=== PATIENT | female | born 1965 | race Caucasian/White ===

== ENCOUNTER 2017-03-11 10:12 | Emergency (ER) | payer BC ==
[~2017-03-11] VITALS: Ht 165.1 cm; Wt 109.0 kg
[~2017-03-11 10:12] MED LIST: CLON.1 PO
[2017-03-11 10:13] VITALS: BP 185/88; PULSE 92; RESP 20; TEMP 98.6; O2SAT 99
[2017-03-11] MEDS ORDERED: ERGO2000 PO (10:33)
[2017-03-11] MEDS ORDERED: CANA1TAB3 PO (10:33)
[2017-03-11] MEDS ORDERED: INSU1INJ13 SQ (10:33)
[2017-03-11] MEDS ORDERED: VICT18IN SQ (10:33)
[2017-03-11] MEDS ORDERED: LEVO50TA4 PO (10:33)
[2017-03-11] MEDS ORDERED: LISI-515 PO (10:33)
[2017-03-11] MEDS ORDERED: GABA300C5 PO (10:33)
[2017-03-11] MEDS ORDERED: HYDROmorphone HCL PF 1 MG/ML VIAL IVS ONE (11:30)
[2017-03-11] MEDS ORDERED: ONDANSETRON HCL 4 MG/2 ML VIAL IVP ONE (11:30)
--- NOTE | 2017-03-11 11:45 | PD ---
HPI Chief Complaint: General Weakness Time Seen by Provider: 10:37 Travel History International Travel<30 days: No Contact w/Intl Traveler<30days: No History of Present Illness HPI His is a 51-year-old female history of hypertension, diabetes mellitus, who presents today with complaints of pain and weakness of her right leg. Patient also complains of numbness to her left leg. Patient states that she's had 2-1/ 2 weeks of progressive low back pain and right buttock pain. She states it's now started to run down the back of her leg. She states that she's been seen by her primary care doctor who placed her on muscle relaxers. She was also seen in urgent care and was given a steroid injection. She states that despite this, she still having discomfort. PFSH Past Medical History Hx Anticoagulant Therapy: No Anemia: Yes Cardiovascular Problems: No Chemotherapy: No Cerebrovascular Accident: No Diabetes: Yes Patient Takes Glucophage: No Hypertension: Yes Respiratory: No Thyroid Disease: Yes Influenza Vaccination: No ?: Not Para: 2 : 1 Past Surgical History Surgical History: No Previous Surgery Hysterectomy: No Social History Alcohol Use: No Tobacco Use: No Substance Use: No Allergies-Medications (Allergen,Severity, Reaction): Coded Allergies: No Known Allergies (Unverified , 03/11/17) Reported Meds & Prescriptions Reported Meds & Active Scripts Active Reported Victoza Inj (Liraglutide Inj) 18 Mg/3 Ml Pen 0.6 Mg SQ HS Tresiba Flextouch Pen Inj (Insulin Degludec Inj) 600 unit/3 ML Pen 32 Units SQ DAILY Invokamet (Canagliflozin-Metformin) 150-500 Mg Tab 2 Tab PO DAILY Take with meals. Avoid ethanol. Vitamin D2 (Ergocalciferol) 2,000 Unit Tab 5,000 Units PO DAILY Gabapentin 300 Mg Cap 300 Mg PO QID Lisinopril 20 Mg Tab 20 Mg PO DAILY Levothyroxine (Levothyroxine Sodium) 50 Mcg Tab 50 Mcg PO DAILY Review of Systems Except as stated in HPI: all other systems reviewed are Neg General / Constitutional: No: Fever, Chills HENT: No: Headaches, Neck Pain Cardiovascular: No: Chest Pain or Discomfort, Palpitations Respiratory: No: Cough, Shortness of Breath Gastrointestinal: No: Nausea, Vomiting, Abdominal Pain Genitourinary: No: Frequency, Dysuria, Incontinence Musculoskeletal: Positive: Weakness (secondary to pain), Pain (low back and right buttock/right leg) Neurologic: Positive: Sensory Disturbance (numbness and tingling. The patient does have a history of neuropathy.), No: Weakness, Incontinence Physical Exam Narrative GENERAL: Well-nourished, well-developed patient. SKIN: Focused skin assessment warm/dry. HEAD: Normocephalic/atraumatic. EYES: No scleral icterus. No injection or drainage. NECK: Supple, trachea midline. CARDIOVASCULAR: Regular rate and rhythm without murmurs, gallops, or rubs. RESPIRATORY: Breath sounds equal bilaterally. No accessory muscle use. GASTROINTESTINAL: Abdomen soft, non-tender, nondistended. MUSCULOSKELETAL: No cyanosis, or edema. BACK: Subjective lower lumbar spine pain. Worse on the right. NEUROLOGICAL: Awake and alert. Cranial nerves II through XII intact. Motor grossly within normal limits. Five out of 5 muscle strength in all muscle groups. Normal speech. Data Data Last Documented VS Vital Signs Date Time Temp Pulse Resp B/P Pulse Ox O2 Delivery O2 Flow Rate FiO2 03/11/17 13:05 17 03/11/17 10:13 98.6 92 185/88 99 Room Air Orders Mri L Spine W/O Contrast (03/11/17 10:58) Ondansetron Inj (Zofran Inj) (03/11/17 11:30) Hydromorphone Pf Inj (Dilaudid Pf Inj) (03/11/17 11:30) MDM Medical Decision Making Medical Screen Exam Complete: Yes Emergency Medical Condition: Yes Differential Diagnosis Sciatica versus cauda equina syndrome versus neuropathy Narrative Course 51-year-old female history diabetes mellitus, hypertension, presented today with complaints of back pain with radiation down her right leg. Patient has no focal weakness on exam. She has subjective numbness and tingling. 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 An MRI of the lumbar spine to rule out cauda equina syndrome. There is mild canal stenosis however no evidence of cauda equina syndrome. She does have narrowing of the neural foramina bilaterally at L4-L5. Discussed with patient this is likely the cause of her pain. We discussed this is sciatica. We will treat her with muscle relaxer and pain medication. I informed her she'll need to follow up with a paintings restorer for possible injections. She is on her feet all day at work. She'll be given a note to go back to work on March 20. She states she is taking FMLA. Diagnosis Primary Impression: Lumbago of lumbosacaral region with sciatica Additional Impressions: Diabetes mellitus Hypertension Additional Instructions: Avoid heavy lifting. Follow up with pain management. Try to get her blood sugar in better control. Return if loss of bowel or bladder function. Scripts Hydrocodone-Acetaminophen (Lortab)5-325 Mg Tab1 Tab PO Q6H PRN (PAIN) #20 TAB Ref 0 Prov:Pedro Novak MD 03/11/17 Cyclobenzaprine (Flexeril)10 Mg Tab10 Mg PO TID #15 TAB Ref 0 Prov:Pedro Novak MD 03/11/17 Disposition: 01 DISCHARGE HOME Condition: Stable Pedro Novak MD Mar 11, 2017 11:45
--- NOTE | 2017-03-11 12:44 | RADRPT ---
EXAM DATE/TIME: 03/11/2017 12:16 [facility] COMPARISON: No previous studies available for comparison. INDICATIONS : Pain. Right lower extremity radiculopathy. MEDICAL HISTORY : Diabetes mellitus type 2. Hypertension. Anemia. SURGICAL HISTORY : None. ENCOUNTER: Initial ACUITY: 1 day PAIN SCORE: 4/10 LOCATION: [facility] TECHNIQUE: Multiplanar multisequence MRI of the lumbar spine was performed without contrast. FINDINGS: The most caudal appearing lumbar vertebra is numbered as L5. VERTEBRAE: Homogeneous signal. Normal alignment. DISCS: There is mild desiccation of the disc at the L4-5 level with small anterior extradural defect on the sagittal images. Disc space heights are preserved. CONUS: Normal level and configuration. T12-L1: The thecal sac has a normal diameter. No evidence of disc bulge or protrusion. The neural foramina are patent bilaterally. L1-L2: The thecal sac has a normal diameter. No evidence of disc bulge or protrusion. The neural foramina are patent bilaterally. L2-L3: The thecal sac has a normal diameter. No evidence of disc bulge or protrusion. The neural foramina are patent bilaterally. L3-L4: The thecal sac has a normal diameter. No evidence of disc bulge or protrusion. The neural foramina are patent bilaterally. L4-L5: There is mild annular disc bulge with mild flattening of the anterior thecal sac and no focal protrus ion. There is mild narrowing of the neural foramina. Degenerative changes are noted involving the fac et joints with hypertrophy of the ligamentum flavum. There is mild central canal stenosis. L5-S1: The thecal sac has a normal diameter. No evidence of disc bulge or protrusion. The neural foramina are patent bilaterally. CONCLUSION: 1. Mild degenerative disc change at L4-5 with mild disc bulge and mild central canal stenosis. 2. Mild narrowing of the neural foramina bilaterally at the L4-5 level. Kahlil Felipe MD on March 11, 2017 at 12:39 Board Certified Radiologist. This report was verified electronically.
[2017-03-11] MEDS ORDERED: HYDR-3533 PO (13:05)
[2017-03-11] MEDS ORDERED: CYCL1TAB29 PO (13:05)
[2017-03-11 13:42] VITALS: BP 136/64; PULSE 70; RESP 16; O2SAT 97
== END 2017-03-11 14:00 | disposition home or self-care (01) ==
LOC: NEPC 10:12
DX: M54.40 Lumbago with sciatica, unspecified side (principal); E11.9 Type 2 diabetes mellitus without complications; I10 Essential (primary) hypertension; R53.1 Weakness; M62.81 Muscle weakness (generalized); R20.0 Anesthesia of skin; D64.9 Anemia, unspecified; E07.9 Disorder of thyroid, unspecified; Z79.899 Other long term (current) drug therapy
CPT/HCPCS: 72148; 96374; 96375; 99285; J1170; J2405

== ENCOUNTER 2017-07-11 08:20 | Observation (INO) | payer BC ==
[2017-07-11] VITALS (11 sets, daily range): BP systolic 122–194; BP diastolic 56–82; PULSE 92–101; RESP 16–24; TEMP 97.8–99.1; O2SAT 97–100
[~2017-07-11 08:20] MED LIST changes: +CANA1TAB3 PO; -CLON.1 PO; +CYCL10TA PO; +ERGO2000 PO; +GABA300C5 PO; +HYDR-3533 PO; +INSU1INJ13 SQ; +LEVO50TA4 PO; +LISI-515 PO; +VICT18IN SQ
[2017-07-11] MEDS ORDERED: ERGO2000 PO (08:49)
[2017-07-11] MEDS ORDERED: GABA400C5 PO ×2 (08:49→12:21)
[2017-07-11] MEDS ORDERED: FERR325T18 PO (08:49)
[2017-07-11] MEDS ORDERED: INSU1INJ14 SQ (08:49)
--- NOTE | 2017-07-11 09:08 | PD ---
HPI Chief Complaint: Dizziness Time Seen by Provider: 09:08 Travel History International Travel<30 days: No Contact w/Intl Traveler<30days: No Traveled to known affect area: No History of Present Illness HPI 51-year-old female came to the emergency room with history of feeling dizzy and lightheaded. The symptoms have been progressively worsening for 1 week. Patient says that she has been diagnosed with anemia in the past which was last year and required blood transfusion and the symptoms feel similar to that. She does not have an active source of bleeding. No history of syncopal episode. No history of chest pain or headache. Last year she required blood transfusion and iron infusion. Vital signs are otherwise stable. Patient is also complaining of pain of her chronic sciatica which starts on the lower back and radiates down her left hip. PFSH Past Medical History Narrative Medical List of her past medical, surgical, social and family history is reviewed from the nursing note. Hx Anticoagulant Therapy: No Anemia: Yes Cardiovascular Problems: No Chemotherapy: No Cerebrovascular Accident: No Diabetes: Yes Patient Takes Glucophage: No Diminished Hearing: No Hypertension: Yes Respiratory: No Thyroid Disease: Yes ?: Not Para: 2 : 1 Past Surgical History Surgical History: No Previous Surgery Hysterectomy: No Social History Alcohol Use: No Tobacco Use: No Substance Use: No Allergies-Medications (Allergen,Severity, Reaction): Coded Allergies: No Known Allergies (Unverified Allergy, Unknown, 07/11/17) Comments no known drug allergies. Reported Meds & Prescriptions Reported Meds & Active Scripts Active Walker with Front Wheels (Device) 1 Mis Mis Ea .ROUTE DIRECTED Gabapentin 400 Mg Cap 400 Mg PO Q6HR Reported Tresiba Flextouch Pen Inj (Insulin Degludec Inj) 300 unit/3 ML Pen 38 Units SQ DAILY Vitamin D2 (Ergocalciferol) 2,000 Unit Tab 5,000 Units PO WEEKLY Victoza Inj (Liraglutide Inj) 18 Mg/3 Ml Pen 0.6 Mg SQ HS Invokamet (Canagliflozin-Metformin) 150-500 Mg Tab 2 Tab PO DAILY Take with meals. Avoid ethanol. Lisinopril 20 Mg Tab 20 Mg PO DAILY Levothyroxine (Levothyroxine Sodium) 50 Mcg Tab 50 Mcg PO DAILY Narrative Medication List of her home medications reviewed from the nursing note. Review of Systems Except as stated in HPI: all other systems reviewed are Neg Musculoskeletal: Positive: Pain Neurologic: Positive: Dizziness Physical Exam Narrative GENERAL: Awake, alert, obese, mild distress SKIN: Focused skin assessment warm/dry. Pale HEAD: Atraumatic. Normocephalic. EYES: Pupils equal and round. No scleral icterus. No injection or drainage. Pallor ENT: No nasal bleeding or discharge. Mucous membranes pink and moist. NECK: Trachea midline. No JVD. CARDIOVASCULAR: Regular rate and rhythm. No murmur appreciated. RESPIRATORY: No accessory muscle use. Clear to auscultation. Breath sounds equal bilaterally. GASTROINTESTINAL: Abdomen soft, non-tender, nondistended. Hepatic and splenic margins not palpable. MUSCULOSKELETAL: No obvious deformities. No clubbing. No cyanosis. No edema. NEUROLOGICAL: Awake and alert. No obvious cranial nerve deficits. Motor grossly within normal limits. Normal speech. PSYCHIATRIC: Appropriate mood and affect; insight and judgment normal. Data Data Last Documented VS Vital Signs Date Time Temp Pulse Resp B/P (MAP) Pulse Ox O2 Delivery O2 Flow Rate FiO2 07/11/17 09:24 102 163/71 (101) 101 160/70 (100) 159/69 (99) 07/11/17 09:14 16 100 Room Air 07/11/17 08:22 98.2 Orders Orders Basic Metabolic Panel (Bmp) (07/11/17 09:09) Complete Blood Count With Diff (07/11/17 09:09) Type And Screen (07/11/17 09:09) Ecg Monitoring (07/11/17 09:09) Iv Access Insert/Monitor (07/11/17 09:09) Oximetry (07/11/17 09:09) Sodium Chloride 0.9% Flush (Ns Flush) (07/11/17 09:15) Ct Brain W/O Iv Contrast(Rout) (07/11/17 ) Meclizine (Antivert) (07/11/17 09:15) Red Blood Cells (Rbc) (07/11/17 10:05) Blood Product Administration (07/11/17 10:05) Sodium Chlor 0.9% 250 Ml Inj (Ns 250 Ml (07/11/17 10:15) Vascular Access Team Consult/P PRN (07/11/17 10:15) Vascular Poc Ultrasound (07/11/17 ) Acetamin-Hydrocod 325-5 Mg (Mize 5-325 (07/11/17 10:30) Admit Order (Ed Use Only) (07/11/17 10:46) Labs Laboratory Tests Test 07/11/17 09:40 White Blood Count 10.4 TH/MM3 Red Blood Count 2.90 MIL/MM3 Hemoglobin 6.3 GM/DL Hematocrit 19.9 % Mean Corpuscular Volume 68.8 FL Mean Corpuscular Hemoglobin 21.7 PG Mean Corpuscular Hemoglobin Concent 31.5 % Red Cell Distribution Width 18.6 % Platelet Count 371 TH/MM3 Mean Platelet Volume 9.7 FL Neutrophils (%) (Auto) 77.0 % Lymphocytes (%) (Auto) 14.8 % Monocytes (%) (Auto) 5.5 % Eosinophils (%) (Auto) 2.1 % Basophils (%) (Auto) 0.6 % Neutrophils # (Auto) 8.0 TH/MM3 Lymphocytes # (Auto) 1.5 TH/MM3 Monocytes # (Auto) 0.6 TH/MM3 Eosinophils # (Auto) 0.2 TH/MM3 Basophils # (Auto) 0.1 TH/MM3 CBC Comment DIFF FINAL Differential Comment Blood Smear Pathologist Review Blood Urea Nitrogen 33 MG/DL Creatinine 1.17 MG/DL Random Glucose 246 MG/DL Calcium Level 9.3 MG/DL Sodium Level 135 MEQ/L Potassium Level 4.3 MEQ/L Chloride Level 104 MEQ/L Carbon Dioxide Level 23.9 MEQ/L Anion Gap 7 MEQ/L Estimat Glomerular Filtration Rate 49 ML/MIN Iron Level 16 MCG/DL Total Iron Binding Capacity 528 MCG/DL Percent Iron Saturation 3.0 % Vitamin B12 Level 555 PG/ML Folate GREATER THAN 20.0 NG/ML Thyroid Stimulating Hormone 3rd Gen 3.980 uIU/ML MDM Medical Decision Making Medical Screen Exam Complete: Yes Emergency Medical Condition: Yes Medical Record Reviewed: Yes Differential Diagnosis Anemia, cardiac arrhythmia, intracranial bleed Narrative Course 10:49 AM blood test results are back. Patient has critically low hemoglobin and hematocrit. Blood sugar is elevated. I have ordered for 2 units of blood transfusion. I discussed the case with the patient and her and recommended admission at least for observation. I discussed the case with the residents who have accepted the admission. Critical Care Narrative Aggregate critical care time was 30 minutes. Time to perform other separately billable procedures was not included in the critical care time. My time did not include minutes spent treating any other patients simultaneously or on activities that did not directly contribute to the patient's treatment. The services I provided to this patient were to treat and/or prevent clinically significant deterioration that could result in: Symptomatic anemia, 2 units of blood transfused I provided critical care services requiring my management, as noted below: Chart data review, documentation time, medication orders and management, vital sign assessments/reviewing monitor data, ordering and reviewing lab tests, ordering and interpreting/reviewing x-rays and diagnostic studies, care of the patient and discussion of the patient with the admitting physicians. Procedures EKG Prior to Arrival: No HemaPrompt Point of Care Internal Pos. & Neg. Controls: Passed Fecal Specimen Occult Blood: Negative Diagnosis Primary Impression: Symptomatic anemia Additional Impressions: Hyperglycemia Chronic sciatica Qualified Codes: M54.32 - Sciatica, left side Admitting Information Admitting Physician Requests: Observation Scripts Ferrous Sulfate (Ferrous Sulfate) 325 Mg (65 Mg Iron) Tablet 325 MG PO TIDPC for Nutritional Supplement, #90 TAB 1 Refill Prov: Denny Solomon MD R2 07/12/17 Walker with Front Wheels (Walker with Front Wheels) 1 Mis Mis EA .ROUTE DIRECTED, #1 0 Refills Prov: Susy Rangel MD R1 07/11/17 Gabapentin (Gabapentin) 400 Mg Cap 400 MG PO Q6HR, #30 CAP 0 Refills Prov: Susy Rangel MD R1 07/11/17 Parish Parrish MD Jul 11, 2017 09:08
[2017-07-11] MEDS ORDERED: MECLIZINE HCL 25 MG TAB PO ONE (09:15)
[2017-07-11] MEDS ORDERED: SODIUM CHLORIDE 0.9% FLUSH 10 ML FLUSH IVF PRN (09:15)
[2017-07-11 09:52] LABS: BASOPHIL # 0.1 TH/MM3 (0-0.2); BASOPHIL % 0.6 % (0.0-2.0); EOSINOPHIL # 0.2 TH/MM3 (0-0.4); EOSINOPHIL % 2.1 % (0.0-4.0); LYMPH % 14.8 % (9.0-44.0); LYMPHOCYTE # 1.5 TH/MM3 (1.0-4.8); MEAN CELL VOLUME 68.8 FL (80.0-100.0); MEAN CORPUSCULAR HEMOGLOBIN 21.7 PG (27.0-34.0); MEAN CORPUSCULAR HGB CONC 31.5 % (32.0-36.0); MONO % 5.5 % (0.0-8.0); PLATELET COUNT 371 TH/MM3 (150-450); RED CELL DISTRIBUTION WIDTH 18.6 % (11.6-17.2); WHITE BLOOD COUNT 10.4 TH/MM3 (4.0-11.0)
[2017-07-11 09:55] LABS: HEMO FLAGS DIFF FINAL
[2017-07-11 10:02] LABS: HEMATOCRIT 19.9 % (35.0-46.0)
[2017-07-11] MEDS ORDERED: SODIUM CHLOR 0.9% 250 ML INJ 250 ML IV ONE (10:15)
--- NOTE | 2017-07-11 10:15 | RADRPT ---
EXAM DATE/TIME: 07/11/2017 09:46 [facility] COMPARISON: No previous studies available for comparison. INDICATIONS : Dizziness on and off for 1 week. RADIATION DOSE: 37.89 CTDIvol (mGy) MEDICAL HISTORY : Diabetes mellitus type 2. Hypertension. SURGICAL HISTORY : None. ENCOUNTER: Initial ACUITY: 1 week PAIN SCALE: 0/10 LOCATION: cranial TECHNIQUE: Multiple contiguous axial images were obtained of the head. Using automated exposure control and adj ustment of the mA and/or kV according to patient size, radiation dose was kept as low as reasonably a chievable to obtain optimal diagnostic quality images. DICOM format image data is available electro nically for review and comparison. FINDINGS: CEREBRUM: The ventricles are normal for age. No evidence of midline shift, mass lesion, hemorrhage or acute in farction. No extra-axial fluid collections are seen. POSTERIOR FOSSA: The cerebellum and brainstem are intact. The 4th ventricle is midline. The cerebellopontine angle i s unremarkable. EXTRACRANIAL: The visualized portion of the orbits is intact. SKULL: The calvaria is intact. No evidence of skull fracture. CONCLUSION: Negative exam. Ketan Flaherty MD on July 11, 2017 at 10:12 Board Certified Radiologist. This report was verified electronically.
[2017-07-11 10:27] LABS: BICARBONATE 23.9 MEQ/L (21.0-32.0); POTASSIUM 4.3 MEQ/L (3.5-5.1)
[2017-07-11] MEDS ORDERED: ACETAMINOPHEN/HYDROcodone 325 MG/5 MG TAB PO ONE (10:30)
--- NOTE | 2017-07-11 10:32 | HHI.HP ---
[facility] Service Family Medicine Primary Care Physician Ray Tobar M.D. Admission Diagnosis Diagnoses: International Travel<30 Days: No Contact w/Intl Traveler<30days: No Known Affected Area: No History of Present Illness Patient is a 51 year old female with a past medical history of anemia, hypothyroidism, DM and hypertension who presents to the [place] ED complaining of weakness and dizziness x 1 week. Patient has experienced dizziness on and off. When she got up this morning, she felt the room spinning. She denies any near-syncopal or syncopal events. Patient also states that she has noticed her complexion to be pale. She reports "hearing the pounding of [her] heartbeat in [ her] ears." Blood sugars have not been well controlled this week; highest blood sugar recorded in 500s. Patient has regular monthly periods. She describes first 2 days as heavy; patient reports 4-5 soaked tampons/pads per day with occasional samuel-sized blood clots. Patient denies weakness and dizziness with menstrual bleeding. Of note, patient had same set of symptoms in October 2015 when she was admitted for hemoglobin of 6 at [facility]. She received blood transfusions and iron infusion. Workup at that time included blood work and bone marrow biopsy. Following hospitalization, patient had normal EGD/colonoscopy. Patient has not followed up with hematology. PCP follows H&H. Hemoglobin in October 2016 was 11. Patient takes iron supplementation daily. (Susy Rangel MD R1) Review of Systems Constitutional: COMPLAINS OF: Fatigue, Dizziness, DENIES: Diaphoretic episodes , Fever, Chills, Change in appetite Endocrine: DENIES: Abnorml menstrual pattern Eyes: COMPLAINS OF: Blurred vision, DENIES: Diplopia, Vision loss, Double Vision Ears, nose, mouth, throat: COMPLAINS OF: Tinnitus (Pounding ), DENIES: Nasal discharge, Throat pain, Hoarseness, Ear Pain, Running Nose Respiratory: COMPLAINS OF: Cough, Shortness of breath (When walking), DENIES: Wheezing, Sputum production Cardiovascular: COMPLAINS OF: Lower Extremity Edema (Decreased movement due to pain in hip), DENIES: Chest pain, Palpitations Gastrointestinal: DENIES: Abdominal pain, Black stools, Bloody stools, Constipation, Diarrhea, Nausea, Vomiting Genitourinary: DENIES: Abnormal vaginal bleeding, Dysmenorrhea, Urinary frequency, Urgency, Hematuria Musculoskeletal: COMPLAINS OF: Back pain (Sciatica), DENIES: Joint pain, Muscle aches, Neck pain Integumentary: DENIES: Abnormal pigmentation, Rash, Nail changes Hematologic/lymphatic: DENIES: Bruising Neurologic: COMPLAINS OF: Headache (This week) Psychiatric: COMPLAINS OF: Anxiety, Depression (Susy Rangel MD R1) Past Family Social History Past Medical History Hypothyroidism Diabetes Peripheral Neuropathy Anemia Hypertension Past Surgical History None Reported Medications Active Gabapentin 400 Mg Cap 400 Mg PO Q6HR Reported Tresiba Flextouch Pen Inj (Insulin Degludec Inj) 300 unit/3 ML Pen 38 Units SQ DAILY Ferrous Sulfate 325 Mg (65 Mg Iron) Tablet 150 Mg PO BID Vitamin D2 (Ergocalciferol) 2,000 Unit Tab 5,000 Units PO WEEKLY Victoza Inj (Liraglutide Inj) 18 Mg/3 Ml Pen 0.6 Mg SQ HS Invokamet (Canagliflozin-Metformin) 150-500 Mg Tab 2 Tab PO DAILY Take with meals. Avoid ethanol. Lisinopril 20 Mg Tab 20 Mg PO DAILY Levothyroxine (Levothyroxine Sodium) 50 Mcg Tab 50 Mcg PO DAILY (Susy Rangel MD R1) Allergies: Coded Allergies: No Known Allergies (Unverified Allergy, Unknown, 07/11/17) Active Ordered Medications Current Medications Medications (Trade) Dose Ordered Sig/Manuel Route Start Time Stop Time Status Last Admin Sodium Chloride 250 ml @ 15 mls/hr ONCE ONCE IV 07/11/17 10:15 07/12/17 02:54 07/11/17 13:29 (Ferrous Sulfate) 325 mg DAILY PO 07/11/17 14:00 (Synthroid) 50 mcg DAILY@0600 PO 07/11/17 12:15 07/11/17 13:29 (Prinivil) 20 mg DAILY PO 07/11/17 12:15 07/11/17 13:29 (Drisdol) 50,000 units Q7D PO 07/17/17 09:00 (NS Flush) 2 ml UNSCH PRN IV FLUSH 07/11/17 11:15 (NS Flush) 2 ml BID IV FLUSH 07/11/17 21:00 (Zofran Inj) 4 mg Q6H PRN IVP 07/11/17 11:15 (Tylenol) 650 mg Q6H PRN PO 07/11/17 11:15 (Lucinda-Colace) 1 tab BID PO 07/11/17 21:00 (Milk Of Magnesia Liq) 30 ml Q12H PRN PO 07/11/17 11:15 (Senokot) 17.2 mg Q12H PRN PO 07/11/17 11:15 (Dulcolax Supp) 10 mg DAILY PRN RECTAL 07/11/17 11:15 (Lactulose Liq) 30 ml DAILY PRN PO 07/11/17 11:15 (D50w (Vial) Inj) 50 ml UNSCH PRN IV PUSH 07/11/17 11:30 (Glucagon Inj) 1 mg UNSCH PRN OTHER 07/11/17 11:30 (NovoLOG SUPPLEMENTAL SCALE) 1 ACHS SLIDING SCALE SQ 07/11/17 12:00 07/11/17 13:28 (Catapres) 0.1 mg Q6H PRN PO 07/11/17 11:30 (Benadryl) 25 mg Q4H PRN PO 07/11/17 11:30 (Neurontin) 400 mg Q6HR PO 07/11/17 18:00 Family History Mother - COPD, DM, anemia, 11 blood transfusion in 15 year time-span Brother - Prostate cancer Social History Lives with , for 21 years Alcohol: None Tobacco: None Drugs: None (Susy Rangel MD R1) Physical Exam Vital Signs Vital Signs Date Time Temp Pulse Resp B/P (MAP) Pulse Ox O2 Delivery O2 Flow Rate FiO2 07/11/17 09:24 102 163/71 (101) 101 160/70 (100) 159/69 (99) 07/11/17 09:14 101 16 194/82 (119) 100 Room Air 07/11/17 08:22 98.2 93 16 134/63 (86) 100 Physical Exam GENERAL: This is a well-nourished, well-developed patient, in no apparent distress. SKIN: No rashes, ecchymoses or lesions. Warm and dry. HEAD: Atraumatic/Normocephalic. No temporal or scalp tenderness. EYES: Pupils equal round and reactive. Extraocular motions intact. No scleral icterus. No injection or drainage. ENT: Nose without bleeding, purulent drainage or septal hematoma. Throat without erythema, tonsillar hypertrophy or exudate. Uvula midline. Airway patent. NECK: Trachea midline. No JVD or lymphadenopathy. Supple, nontender, no meningeal signs. CARDIOVASCULAR: Regular rate and rhythm with flow murmurs, without gallops, or rubs. RESPIRATORY: Clear to auscultation. Breath sounds equal bilaterally. No wheezes , rales, or rhonchi. GASTROINTESTINAL: Abdomen soft, non-tender, nondistended. No hepato-splenomegaly , or palpable masses. No guarding. MUSCULOSKELETAL: Bilateral lower extremities with edema but without clubbing, cyanosis. No joint tenderness, effusion. No calf tenderness. NEUROLOGICAL: Awake and alert. Cranial nerves II through XII intact. Motor and sensory grossly within normal limits. Normal speech. Laboratory Laboratory Tests Test 07/11/17 09:40 White Blood Count 10.4 Red Blood Count 2.90 Hemoglobin 6.3 Hematocrit 19.9 Mean Corpuscular Volume 68.8 Mean Corpuscular Hemoglobin 21.7 Mean Corpuscular Hemoglobin Concent 31.5 Red Cell Distribution Width 18.6 Platelet Count 371 Mean Platelet Volume 9.7 Neutrophils (%) (Auto) 77.0 Lymphocytes (%) (Auto) 14.8 Monocytes (%) (Auto) 5.5 Eosinophils (%) (Auto) 2.1 Basophils (%) (Auto) 0.6 Neutrophils # (Auto) 8.0 Lymphocytes # (Auto) 1.5 Monocytes # (Auto) 0.6 Eosinophils # (Auto) 0.2 Basophils # (Auto) 0.1 CBC Comment DIFF FINAL Differential Comment Blood Urea Nitrogen 33 Creatinine 1.17 Random Glucose 246 Calcium Level 9.3 Sodium Level 135 Potassium Level 4.3 Chloride Level 104 Carbon Dioxide Level 23.9 Anion Gap 7 Estimat Glomerular Filtration Rate 49 (Susy Rangel MD R1) Result Diagram: 07/11/17 0940 07/11/17 0940 Imaging Last Impressions Head CT 07/11/17 0000 Signed Impressions: Service Date/Time: Tuesday, July 11, 2017 09:46 - CONCLUSION: Negative exam. Ketan Flaherty MD (Susy Rangel MD R1) Caprini VTE Risk Assessment Caprini VTE Risk Assessment: Mod/High Risk (score >= 2) VTE Pharm Contraindication: Hgb 6.3 Caprini Risk Assessment Model Point Value = 1 Point Value = 2 Point Value = 3 Point Value = 5 Age 41-60 Minor surgery BMI > 25 kg/m2 Swollen legs Varicose veins or History of unexplained or recurrent spontaneous Oral contraceptives or hormone replacement Sepsis (< 1 month) Serious lung disease, including pneumonia (< 1 month) Abnormal pulmonary function Acute myocardial infarction Congestive heart failure (< 1 month) History of inflammatory bowel disease Medical patient at bed rest Age 61-74 Arthroscopic surgery Major open surgery (> 45 min) Laparoscopic surgery (> 45 min) Malignancy Confined to bed (> 72 hours) Immobilizing plaster cast Central venous access Age >= 75 History of VTE Family history of VTE Factor V Leiden Prothrombin [id number] Lupus anticoagulant Anticardiolipin antibodies Elevated serum homocysteine Heparin-induced thrombocytopenia Other congenital or acquired thrombophilia Stroke (< 1 month) Elective arthroplasty Hip, pelvis, or leg fracture Acute spinal cord injury (< 1 month) Prophylaxis Regimen Total Risk Factor Score Risk Level Prophylaxis Regimen 0-1 Low Early ambulation 2 Moderate Order ONE of the following: *Sequential Compression Device (SCD) *Heparin 5000 units SQ BID 3-4 Higher Order ONE of the following medications: *Heparin 5000 units SQ TID *Enoxaparin/Lovenox 40 mg SQ daily (WT < 150 kg, CrCl > 30 mL/min) *Enoxaparin/Lovenox 30 mg SQ daily (WT < 150 kg, CrCl > 10-29 mL/min) *Enoxaparin/Lovenox 30 mg SQ BID (WT < 150 kg, CrCl > 30 mL/min) AND/OR *Sequential Compression Device (SCD) 5 or more Highest Order ONE of the following medications: *Heparin 5000 units SQ TID (Preferred with Epidurals) *Enoxaparin/Lovenox 40 mg SQ daily (WT < 150 kg, CrCl > 30 mL/min) *Enoxaparin/Lovenox 30 mg SQ daily (WT < 150 kg, CrCl > 10-29 mL/min) *Enoxaparin/Lovenox 30 mg SQ BID (WT < 150 kg, CrCl > 30 mL/min) AND *Sequential Compression Device (SCD) (Susy Rangel MD R1) Assessment and Plan Assessment and Plan Patient is a 51 year old female with a past medical history of anemia, hypothyroidism, DM and hypertension who presents to the [place] ED complaining of weakness and dizziness x 1 week. Found to have hemoglobin of 6.3. Admitted for blood transfusion. Code Status Full code. Discussed Condition With Drs. Stoll and Juanito. (Susy Rangel MD R1) Attending Attestation THIS CASE WAS DISCUSSED WITH THE RESIDENT PHYSICIANS. I HAVE REVIEWED THE RECORD AND AGREE WITH THE ABOVE NOTE AND PLAN OF CARE WAS DISCUSSED. I HAVE AUTHORIZED THE ORDER FOR ADMISSION TO AN IN-PATIENT STATUS. (Kenyon Stoll MD) Problem List: (1) Anemia ICD Codes: D64.9 - Anemia, unspecified Status: Acute Plan: Patient has experienced weakness and dizziness on and off for the past week. When she got up this morning, she felt the room spinning. She denies any near-syncopal or syncopal events. Patient also states that she has noticed her complexion to be pale. Patient has had similar set of symptoms in October 2015; at that time, she was found to have hemoglobin of 6. Extensive workup negative. H&H followed by PCP. Patient taken iron supplementation at home. Differential diagnosis: * Iron deficiency anemia versus anemia of chronic disease versus malignancy Labs on admission: * Hgb 6.3 * Hct 19.9 * MCV 68.8 * MCH 21.7 * MCHC 31.5 * RDW 18.6 Labs: * Blood type A+ * Iron studies pending. * Vitamin B-12 level pending. * Folate level pending. * Post transfusion H&H pending. Imaging/studies: * Head CT: Negative exam. * EKG: Sinus rhythm. * Vascular ultrasound: pending. Infusions/medications: * Leuk-reduced RBC x2 units ordered. * Ferrous sulfate 325 mg daily PO. * Ergocalciferol 5,000 units q7D PO. (2) Diabetes mellitus ICD Codes: E11.9 - Type 2 diabetes mellitus without complications Status: Chronic Plan: Per patient, blood glucose has not been well controlled over the last week. Labs on admission: * Random glucose: 246. Orders: * Blood glucose checks to be done at 800, 1200, 1700, 2100. Medications: * Held home diabetic medications. * NovoLog supplemental sliding scale. (3) Chronic sciatica ICD Codes: M54.30 - Sciatica, unspecified side Status: Chronic Plan: Patient with chronic sciatica, which starts in lower back and radiates down left hip. Medications: * Continued home Gabapentin 400 mg q6hr PO. * Acetaminophen 650 mg q6hr PO PRN Temp >101F, Pain 1-10, Headache. (4) Peripheral neuropathy ICD Codes: G62.9 - Polyneuropathy, unspecified Status: Chronic Plan: Patient with history of peripheral neuropathy. Likely secondary to diabetes. * See Plan for Chronic sciatica. (5) Hypertension ICD Codes: I10 - Essential (primary) hypertension Status: Chronic Plan: Patient with history of hypertension. Medications: * Continued home lisinopril 20 mg daily PO. (6) Hypothyroid ICD Codes: E03.9 - Hypothyroidism, unspecified Status: Chronic Plan: Patient with history of hypothyroidism. Medications: * Continued home Levothyroxine 50 mcg daily PO. (7) Fluid, Electrolytes, Nutrition and Prophylaxis Status: Acute Plan: Fluid: * Not indicated at this time. Electrolyte: * Monitor and replete as necessary. Nutrition: * Diabetic diet. DVT Prophylaxis: * SCDs. (Susy Rangel MD R1) Problem Qualifiers (1) Anemia: Qualified Codes: D50.8 - Other iron deficiency anemias (2) Chronic sciatica: Qualified Codes: M54.32 - Sciatica, left side Susy Rangel MD R1 Jul 11, 2017 10:32 Kenyon Stoll MD Jul 12, 2017 18:00
[2017-07-11] MEDS ORDERED: BISACODYL 10 MG SUPP RECTAL PRN (11:15)
[2017-07-11] MEDS ORDERED: LACTULOSE SYRUP 20 GM/30 ML CUP PO PRN (11:15)
[2017-07-11] MEDS ORDERED: ONDANSETRON HCL 4 MG/2 ML VIAL IVP PRN (11:15)
[2017-07-11] MEDS ORDERED: SENNOSIDES 8.6 MG TAB PO PRN (11:15)
[2017-07-11] MEDS ORDERED: MAGNESIUM HYDROXIDE SUSP 30 ML CUP PO PRN (11:15)
[2017-07-11] MEDS ORDERED: SODIUM CHLORIDE 0.9% FLUSH 10 ML FLUSH IV FLUSH PRN (11:15)
[2017-07-11] MEDS ORDERED: diphenhydrAMINE HCL 25 MG CAP PO PRN (11:30)
[2017-07-11] MEDS ORDERED: cloNIDine HCL 0.1 MG TAB PO PRN (11:30)
[2017-07-11] MEDS ORDERED: GLUCAGON 1 MG/ML VIAL OTHER PRN (11:30)
[2017-07-11] MEDS ORDERED: DEXTROSE 50% IN WATER 50 ML VIAL(D50) IV PUSH PRN (11:30)
[2017-07-11] MEDS ORDERED: GABAPENTIN 400 MG CAP PO SCH (12:00)
[2017-07-11] MEDS ORDERED: FUROSEMIDE 20 MG/2 ML VIAL IV PUSH ONE (12:30)
[2017-07-11] MEDS: INSULIN ASPART SUPPLEMENTAL SCALE SQ SCH ×3 (13:28→20:45)
[2017-07-11] MEDS: LEVOTHYROXINE SODIUM 50 MCG TAB PO SCH (13:29)
[2017-07-11] MEDS: LISINOPRIL 20 MG TAB PO SCH (13:29)
[2017-07-11] MEDS: FERROUS SULFATE 325 MG (65 MG ELEMENTAL IRON) TAB PO SCH (14:43)
[2017-07-11 15:03] LABS: TRANSFERRIN IRON PROFILE 377 MG/DL (200-360)
[2017-07-11] MEDS ORDERED: WALKER WHEELS/F1 MIS (15:41)
[2017-07-11] MEDS: GABAPENTIN 400 MG CAP PO SCH (17:47)
--- NOTE | 2017-07-11 18:17 | EKG ---
Date Performed: 07/11/2017 Time Performed: 11:59:29 PTAGE: 51 years EKG: Sinus rhythm NONSPECIFIC T-WAVE ABNORMALITY BORDERLINE ECG NO PREVIOUS TRACING DOCTOR: Milton Villeda Interpretating Date/Time 07/11/2017 18:16:34
[2017-07-11] MEDS: SODIUM CHLORIDE 0.9% FLUSH 10 ML FLUSH IV FLUSH SCH (20:31)
[2017-07-11] MEDS: ACETAMINOPHEN 325 MG TAB PO PRN (20:31)
[2017-07-11] MEDS: DOCUSATE SODIUM 50 MG/SENNA 8.6 MG TAB PO SCH (20:31)
[2017-07-11 22:33] LABS: HEMATOCRIT 25.5 % (35.0-46.0); REVIEW FLAG FINAL
[2017-07-12] VITALS (13 sets, daily range): BP systolic 100–151; BP diastolic 58–78; PULSE 80–95; RESP 16–18; TEMP 97.8–98.6; O2SAT 95–98
[2017-07-12] MEDS: GABAPENTIN 400 MG CAP PO SCH ×4 (00:24→19:41)
[2017-07-12] MEDS: LEVOTHYROXINE SODIUM 50 MCG TAB PO SCH (05:49)
[2017-07-12 06:45] LABS: AUTOMATED NEUTROPHIL # 5.9 TH/MM3 (1.8-7.7); BASOPHIL # 0.1 TH/MM3 (0-0.2); BASOPHIL % 1.1 % (0.0-2.0); EOSINOPHIL # 0.3 TH/MM3 (0-0.4); EOSINOPHIL % 3.2 % (0.0-4.0); HEMATOCRIT 23.7 % (35.0-46.0); HEMO FLAGS DIFF FINAL; LYMPH % 23.8 % (9.0-44.0); LYMPHOCYTE # 2.2 TH/MM3 (1.0-4.8); MEAN CELL VOLUME 72.1 FL (80.0-100.0); MEAN CORPUSCULAR HEMOGLOBIN 23.2 PG (27.0-34.0); MEAN CORPUSCULAR HGB CONC 32.2 % (32.0-36.0); MONO % 7.8 % (0.0-8.0); NEUT % 64.1 % (16.0-70.0); PLATELET COUNT 283 TH/MM3 (150-450); RED BLOOD COUNT 3.29 MIL/MM3 (4.00-5.30); RED CELL DISTRIBUTION WIDTH 20.5 % (11.6-17.2); WHITE BLOOD COUNT 9.2 TH/MM3 (4.0-11.0)
[2017-07-12 07:03] LABS: ALT (GPT) 13 U/L (10-53); ANION GAP 8 MEQ/L (5-15); AST (GOT) 9 U/L (15-37); BICARBONATE 25.7 MEQ/L (21.0-32.0); BLOOD UREA NITROGEN 30 MG/DL (7-18); CHLORIDE 104 MEQ/L (98-107); GLOMERULAR FILTRATION RATE 50 ML/MIN (>89); POTASSIUM 3.8 MEQ/L (3.5-5.1); SODIUM (NA) 138 MEQ/L (136-145)
[2017-07-12 07:06] LABS: ALKALINE PHOSPHATASE 25 U/L (45-117); TOTAL BILIRUBIN ADULT 0.7 MG/DL (0.2-1.0)
[2017-07-12] MEDS: DOCUSATE SODIUM 50 MG/SENNA 8.6 MG TAB PO SCH ×2 (09:00→21:00)
[2017-07-12] MEDS: LISINOPRIL 20 MG TAB PO SCH (09:01)
[2017-07-12] MEDS: FERROUS SULFATE 325 MG (65 MG ELEMENTAL IRON) TAB PO SCH (09:01)
[2017-07-12] MEDS: SODIUM CHLORIDE 0.9% FLUSH 10 ML FLUSH IV FLUSH SCH ×2 (09:02→21:00)
[2017-07-12] MEDS: INSULIN ASPART SUPPLEMENTAL SCALE SQ SCH ×4 (09:03→21:00)
[2017-07-12] MEDS: ACETAMINOPHEN 325 MG TAB PO PRN (09:08)
--- NOTE | 2017-07-12 10:46 | HHI.FPPN ---
Subjective Remarks FM Attending Note: Patient seen and examined. S: Chart and all resident physician notes reviewed. In summary this is a 51 year old female who was admitted with an admission diagnosis of Symptomatic Anemia requiring a Blood Transfusion. This patient has a past history of symptomatic anemia for which she was hospitalized at [facility] in [place] in 2016. She underwent a fairly extensive evaluation including endoscopy. The anemia was felt to be due to iron deficiency and she was discharged on iron replacement therapy. The patient presented to the emergency room complaining of weakness and dizziness 1 week. No shortness of breath or chest pain were noted. She was again found to be anemic in the emergency room. No reported blood loss has occurred. She does still have menstrual periods but in terms of quantity of blood the menstrual periods have been relatively light. Objective Vitals Vital Signs Date Time Temp Pulse Resp B/P (MAP) Pulse Ox O2 Delivery O2 Flow Rate FiO2 07/12/17 07:16 80 07/12/17 07:15 97.8 86 16 127/58 (81) 96 07/12/17 04:48 98.0 83 18 111/59 (76) 95 07/12/17 04:29 90 07/12/17 01:25 98.1 86 18 100/58 (72) 96 07/12/17 00:03 84 07/11/17 22:46 18 07/11/17 19:48 97.8 93 18 135/65 (88) 100 07/11/17 19:48 94 07/11/17 17:34 99.1 92 20 131/62 98 07/11/17 17:16 99.1 92 20 142/63 98 07/11/17 17:05 99.1 92 24 142/63 (89) 98 07/11/17 15:15 96 07/11/17 14:15 98.4 93 20 122/56 07/11/17 13:47 98.6 93 20 139/63 98 07/11/17 13:02 97.8 95 20 137/65 (89) 97 07/11/17 12:42 I/O 07/11/17 07/11/17 07/11/17 07/12/17 07/12/17 07/12/17 07:00 15:00 23:00 07:00 15:00 23:00 Intake Total 75 ml 6016 ml Balance 75 ml 6016 ml Intake Oral 4801 ml Packed Cells 800 ml Blood Product IV Normal Saline Flush 75 ml 415 ml # Voids 2 3 Result Diagram: 07/12/17 0510 07/12/17 0510 Other Results Item Value Date Time Iron Level 16 MCG/DL L 07/11/17 0940 Total Iron Binding Capacity 528 MCG/DL H 07/11/17 0940 Percent Iron Saturation 3.0 % L 07/11/17 0940 Vitamin B12 Level 555 PG/ML 07/11/17 0940 Folate GREATER THAN 20.0 NG/ML H 07/11/17 0940 Thyroid Stimulating Hormone 3rd Gen 3.980 uIU/ML H 07/11/17 0940 Total Bilirubin 0.7 MG/DL 07/12/17 0510 Aspartate Amino Transf (AST/SGOT) 9 U/L L 07/12/17 0510 Alanine Aminotransferase (ALT/SGPT) 13 U/L 07/12/17 0510 Alkaline Phosphatase 25 U/L L 07/12/17 0510 Total Protein 6.7 GM/DL 07/12/17 0510 Albumin 2.9 GM/DL L 07/12/17 0510 Imaging Last [address] 07/11/17 0000 Signed Impressions: Service Date/Time: Tuesday, July 11, 2017 09:46 - CONCLUSION: Negative exam. Ketan Flaherty MD Objective Remarks O. CONSTITUTIONAL/GEN: normally nourished, in NAD. BMI increased. EYES: conjunctiva normal, PERRLA, EOMI.. LUNGS: clear A-P, respiratory effort is normal. CARDIOVASCULAR: RR without murmur or gallop. No significant edema. GI/ABD: soft without masses, without organomegaly. NEURO: No focal deficits. SKIN: color normal, no rashes noted. HEME/LYMPH: no bruising, petechia or significant adenopathy MUSC: back is normal in appearance. Extremities are normal in appearance. PSYCH/MENTAL STATUS: Alert and oriented x 3. A/P Assessment and Plan Patient is a 51 year old female with a past medical history of anemia, hypothyroidism, DM and hypertension who presents to the [place] ED complaining of weakness and dizziness x 1 week. Found to have hemoglobin of 6.3. Admitted for blood transfusion. Problem List: (1) Anemia ICD Codes: D64.9 - Anemia, unspecified Status: Acute Plan: Patient has experienced weakness and dizziness on and off for the past week. When she got up this morning, she felt the room spinning. She denies any near-syncopal or syncopal events. Patient also states that she has noticed her complexion to be pale. Patient has had similar set of symptoms in October 2015; at that time, she was found to have hemoglobin of 6. Extensive workup negative. H&H followed by PCP. Patient taken iron supplementation at home. Differential diagnosis: * Iron deficiency anemia versus anemia of chronic disease versus malignancy Labs on admission: * Hgb 6.3 * Hct 19.9 * MCV 68.8 * MCH 21.7 * MCHC 31.5 * RDW 18.6 Labs: * Blood type A+ * Iron studies pending. * Vitamin B-12 level pending. * Folate level pending. * Post transfusion H&H pending. Imaging/studies: * Head CT: Negative exam. * EKG: Sinus rhythm. * Vascular ultrasound: pending. Infusions/medications: * Leuk-reduced RBC x2 units ordered. * Ferrous sulfate 325 mg daily PO. * Ergocalciferol 5,000 units q7D PO. 07/12/17 Iron studies remain low suggesting persistence of iron deficiency anemia. This patient has had a fairly extensive evaluation for occult bleeding with endoscopic examinations within the last year. We will transfuse the patient with a third unit of blood today. We'll increase her iron replacement therapy to ferrous sulfate 325 mg 3 times a day with meals. We will order a follow-up CBC in 1 week. She is to follow-up with her PCP for ongoing evaluation and care. We did recommend that she take the iron replacement therapy with a small serving of orange juice in hopes that the vitamin C we will improve the iron absorption. We did discuss mechanisms to treat constipation if they occur. (2) Diabetes mellitus ICD Codes: E11.9 - Type 2 diabetes mellitus without complications Status: Chronic Plan: Per patient, blood glucose has not been well controlled over the last week. Labs on admission: * Random glucose: 246. Orders: * Blood glucose checks to be done at 800, 1200, 1700, 2100. Medications: * Held home diabetic medications. * NovoLog supplemental sliding scale. (3) Chronic sciatica ICD Codes: M54.30 - Sciatica, unspecified side Status: Chronic Plan: Patient with chronic sciatica, which starts in lower back and radiates down left hip. Medications: * Continued home Gabapentin 400 mg q6hr PO. * Acetaminophen 650 mg q6hr PO PRN Temp >101F, Pain 1-10, Headache. (4) Peripheral neuropathy ICD Codes: G62.9 - Polyneuropathy, unspecified Status: Chronic Plan: Patient with history of peripheral neuropathy. Likely secondary to diabetes. * See Plan for Chronic sciatica. (5) Hypertension ICD Codes: I10 - Essential (primary) hypertension Status: Chronic Plan: Patient with history of hypertension. Medications: * Continued home lisinopril 20 mg daily PO. (6) Hypothyroid ICD Codes: E03.9 - Hypothyroidism, unspecified Status: Chronic Plan: Patient with history of hypothyroidism. Medications: * Continued home Levothyroxine 50 mcg daily PO. (7) Fluid, Electrolytes, Nutrition and Prophylaxis Status: Acute Plan: Fluid: * Not indicated at this time. Electrolyte: * Monitor and replete as necessary. Nutrition: * Diabetic diet. DVT Prophylaxis: * SCDs. Problem Qualifiers (1) Anemia: Qualified Codes: D50.8 - Other iron deficiency anemias (2) Chronic sciatica: Qualified Codes: M54.32 - Sciatica, left side Kenyon Stoll MD Jul 12, 2017 10:45
[2017-07-12] MEDS ORDERED: diphenhydrAMINE HCL 25 MG CAP PO PRN (11:00)
[2017-07-12] MEDS ORDERED: SODIUM CHLOR 0.9% 250 ML INJ 250 ML IV ONE (11:00)
[2017-07-12] MEDS ORDERED: ACETAMINOPHEN 325 MG TAB PO PRN (11:00)
[2017-07-12] MEDS ORDERED: FERR325T18 PO (11:04)
--- NOTE | 2017-07-12 11:04 | HHI.DCPOC ---
Discharge Care Plan Diagnosis: (1) Anemia Goals to Promote Your Health * To prevent worsening of your condition and complications * To maintain your health at the optimal level Directions to Meet Your Goals Take your medications as prescribed Follow your dietary instruction Follow activity as directed Keep your appointments as scheduled Take your immunizations and boosters as scheduled If your symptoms worsen call your PCP, if no PCP go to Urgent Care Center or Emergency Room Smoking is Dangerous to Your Health. Avoid second hand smoke Call the 24-hour hour crisis hotline for domestic abuse at Denny Solomon MD R2 Jul 12, 2017 11:04
[2017-07-12 19:55] LABS: HEMATOCRIT 30.4 % (35.0-46.0); REVIEW FLAG FINAL
[2017-07-17] MEDS ORDERED: ERGOCALCIFEROL (VIT D2) 50,000 UNIT CAP PO SCH (09:00)
[2017-07-17] MEDS ORDERED: ERGOCALCIFEROL (VIT D2) 8,000 UNITS/ML 60 ML BTL PO SCH (09:00)
== END 2017-07-12 21:54 | disposition home or self-care (01) ==
LOC: NEPC 08:20 → NEDA 10:47 → NEPFCDU 12:40
PROVIDERS: ADMIT Family Medicine; ATTEND Family Medicine
DX: D50.8 Other iron deficiency anemias (principal); E11.65 Type 2 diabetes mellitus with hyperglycemia; E11.42 Type 2 diabetes mellitus with diabetic polyneuropathy; M54.32 Sciatica, left side; I10 Essential (primary) hypertension; E03.9 Hypothyroidism, unspecified; Z79.899 Other long term (current) drug therapy; Z79.84 Long term (current) use of oral hypoglycemic drugs
CPT/HCPCS: 36430; 70450; 76937; 80048; 80053; 82607; 82746; 82948; 83540; 83550; 84443; 85014; 85018; 85025; 85060; 86850; 86900; 86901; 86920; 93005; 96361; 96372; 96374; 97162; 99285; G0378; G8987; G8988; J1815; J1940; J7050; P9016